=== PATIENT | male | born 2005 | race Hispanic/Latino ===

== ENCOUNTER 2025-11-03 07:56 | Day surgery (SDC) | payer OTHER ==
[~2025-11-03] VITALS: Ht 180.3 cm; Wt 88.0 kg
[~2025-11-03 07:56] MED LIST: ASPI81TA26 PO; LIDOCAINE 2% 100 MG/5 ML SDV (FOR ANES.) As Ordered ONE; ONDANSETRON 4MG/2ML VIAL As Ordered ONE; TRANEXAMIC ACID 100 MG/ML 10ML VIAL IV ONE; VANCOMYCIN 1000MG/20ML VIAL ONE; dexAMETHasone 4 MG/ML 1 ML VIAL As Ordered ONE
[2025-11-03] MEDS ORDERED: LR 1,000 ML IV SCH (08:15)
[2025-11-03] MEDS ORDERED: MIDAZOLAM INJ 2 MG/2 ML VIAL As Ordered ONE (08:22)
[2025-11-03] MEDS: MIDAZOLAM INJ 2 MG/2 ML VIAL IV PRN (09:34)
[2025-11-03] MEDS: dexAMETHasone 10 MG/1 ML VIAL PRES.FREE PN ONE (09:34)
[2025-11-03] MEDS: LIDOCAINE 1% SDV 5 ML VIAL PN ONE (09:37)
[2025-11-03] MEDS: ceFAZolin SOD 2 GM IV ONCE IV ONE (10:14)
[2025-11-03] MEDS: TRANEXAMIC ACID 100 MG/ML 10ML VIAL As Ordered ONE (10:15)
[2025-11-03] MEDS ORDERED: ACETAMINOPHEN 1000MG/100ML IV BAG As Ordered ONE (10:19)
[2025-11-03] MEDS: VANCOMYCIN 1000MG/20ML VIAL As Ordered ONE (10:39)
[2025-11-03] MEDS ORDERED: HYDROmorphone HCL 2 MG/ML 1 ML VIAL As Ordered ONE (10:53)
[2025-11-03] MEDS ORDERED: ONDANSETRON 4MG/2ML VIAL IV PRN (11:25)
[2025-11-03 12:39] VITALS: BP 117/70; TEMP 97.6; O2SAT 97
== END 2025-11-03 12:39 | disposition home or self-care (01) ==
LOC: M SDC 07:56
PROVIDERS: ATTEND Student in an Organized Health Care Education/Training Program
DX: S93.431A Sprain of tibiofibular ligament of right ankle, initial encounter (principal); X50.1XXA Overexertion from prolonged static or awkward postures, initial encounter; Y93.49 Activity, other involving dancing and other rhythmic movements; Y92.9 Unspecified place or not applicable; Y99.1 Military activity; Z79.82 Long term (current) use of aspirin
CPT/HCPCS: 27814; 27829; 76000; C1713; J0131; J0665; J0688; J1100; J1171; J2250; J2405; J3010; J3373